=== PATIENT | female | born 1950 | race Caucasian/White ===

== ENCOUNTER → 2024-10-24 | Outpatient (CLI) | payer MEDICARE, MEDICAID, SELFPAY ==
--- NOTE | 2024-10-24 08:30 | XR_ITS ---
Examination: Breast ultrasound, unilateral, left complete Date and time of exam: October 24, 2024 0934 hours Breast itchiness, probably benign retroareolar glandular tissue on mammography July 24, 2024 Technique: Real-time zacarias scale ultrasonographic imaging performed left breast including all 4 quadrants as well as nipple retroareolar and axillary region. Findings: No cystic or solid mass IMPRESSION: BI-RADS Category 1: Negative study
--- NOTE | 2024-10-24 09:00 | XR_ITS ---
Examination: Diagnostic digital mammography, unilateral, left Computer aided detection 3-D breast Tomosynthesis, unilateral Date and time of exam: October 24, 2024 0926 hours INDICATIONS: Retroareolar left breast focal asymmetry on mammogram June 03, 2024 Technique: Nonmagnified MLO, CC views of the left breast have been obtained, reconstructed from 3-D Tomosynthesis images. R2 computer aided detection program utilized for evaluation of suspicious masses and/or abnormal calcifications. 3-D Tomosynthesis images obtained. Findings: Scattered areas of fibroglandular density Again noted retroareolar focal asymmetry No definite suspicious masses Impression: BI-RADS category 2: Benign findings Recommend bilateral six-month mammography follow-up
== END | disposition home or self-care (01) ==
LOC: CDIM 09:14
PROVIDERS: Referring Provider Physician Assistant; Visit Provider Physician Assistant
DX: R92.322 Mammographic fibroglandular density, left breast (principal)
CPT/HCPCS: 76641; 77061; 77065; G0279

== ENCOUNTER 2024-12-17 14:16 | Emergency (ER) | payer MEDICARE, SELFPAY ==
[2024-12-17 14:17] VITALS: PULSE 89; RESP 18; O2SAT 93
[2024-12-17 14:28] VITALS: BP 143/66; PULSE 89; RESP 18; TEMP 36.9; O2SAT 95; BMI 26.3
--- NOTE | 2024-12-17 14:37 | EKG_ITS ---
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
--- NOTE | 2024-12-17 14:37 | XR_ITS ---
Examination: CT brain head without contrast. 2-D sagittal coronal reconstructions Date and time of exam:December 17, 2024 1635 hours INDICATIONS: Headaches high blood pressure beginning 3 days ago COMPARISON: November 16, 2019 CTDI: vol (mGy):46.9 DLP: (mGycm):903 Technique: Multiple CT axial sections of the brain have been obtained, 5 mm slice thickness. Contrast has not been administered. 2-D sagittal, coronal reconstructions have been obtained Low dose protocols were performed. One or more of the following dose reduction techniques were used; automated exposure control, adjustment of the mA and/or KV according to patient size, use of iterative reconstruction technique. Findings: No significant ventricular enlargement. Intra-axial or extra-axial hemorrhage density is not seen. No mass effect or midline shift Basal cisterns are not remarkable. Fourth ventricle is midline. Cranial vault intact. Impression: No interval acute hemorrhage, mass effect or midline shift
--- NOTE | 2024-12-17 14:38 | PD.EDADULT ---
ED General RME/HPI General Chief complaint: General Adult/Misc Complain Stated complaint: BP ELEVATED EVEN AFTER TAKING MEDS Time Seen by Provider: 12/17/24 14:33 Arrival date/time: 12/17/24 14:16 RME / HPI RME / HPI narrative: 74-year-old female presents to the emergency department with complaint of my blood pressure is going up and down . Patient also voices concern that she is having mini strokes. Patient reports compliance with her BP medications. Patient also reports pain on the left side of her neck. She denies any slurred speech. Denies any headache. Denies chest pain or palpitations. Related Data Home Medications ?Medication ?Instructions ?Recorded ?Confirmed famotidine 20 mg tablet (Pepcid) 20 mg PO QDAY 06/06/19 11/04/21 sertraline 50 mg tablet 50 mg PO QDAY 06/06/19 11/04/21 atorvastatin 20 mg tablet 20 mg PO QDAY 06/25/19 11/04/21 dulaglutide 0.75 mg/0.5 mL 0.75 mg subcut QWEEK 06/25/19 11/04/21 subcutaneous pen injector (Trulicity) aspirin 81 mg tablet,delayed 81 mg PO QDAY 11/04/21 11/04/21 release estradiol 10 mcg vaginal tablet 10 mcg vaginal DIRECTED 11/04/21 11/04/21 (Vagifem) furosemide 20 mg tablet 20 mg PO QDAY 11/04/21 11/04/21 lisinopril 10 mg tablet 10 mg PO QDAY 11/04/21 11/04/21 potassium chloride 10 mEq 10 meq PO QDAY 11/04/21 11/04/21 capsule,extended release sitagliptin phosphate 50 mg tablet 50 mg PO QDAY 11/04/21 11/04/21 (Januvia) solifenacin 5 mg tablet (Vesicare) 5 mg PO QDAY 11/04/21 11/04/21 Previous Rx's ?Medication ?Instructions ?Recorded clotrimazole 1 % topical solution 1 applicatio topical BID #30 mL 12/07/19 nitrofurantoin 100 mg PO BID #14 caps 10/18/21 monohydrate/macrocrystals 100 mg capsule (Macrobid) Allergies Allergy/AdvReac Type Severity Reaction Status Date / Time albuterol Allergy Severe DIZZY Verified 12/17/24 14:21 fluticasone (From Flonase) Allergy Severe Dizziness Verified 12/17/24 14:21 salmeterol (From Serevent) Allergy Severe Dizziness Verified 12/17/24 14:21 tiotropium (From Spiriva Allergy Severe Dizziness Verified 12/17/24 14:21 with HandiHaler) lansoprazole (From Prevacid) Allergy Intermediate Rash Verified 12/17/24 14:21 Sulfa (Sulfonamide AdvReac Severe WEAKNESS Verified 12/17/24 14:21 Antibiotics) Review of Systems Review of Systems Narrative Review of Systems: Review of systems negative except as outlined in the HPI. ED Exam Narrative Physical exam: Constitutional: no acute distress, age appropriate, non-toxic Eyes: PERRL, conjunctivae w/o pallor, EOMI HENT: normocephalic, atraumatic. Oral mucosa moist Respiratory Effort: no stridor, effort normal, no retractions Breath sounds: Clear bilaterally; No rales, No rhonchi, No wheezing Cardiovascular: regular rhythm, S1 and S2 normal, no murmur Abdominal: soft; non-distended, non-tender Musculoskeletal: no deformities, no swelling, no LE edema Skin: warm, dry; No rash Neurology: alert, oriented X 4. Normal gait. Moves all extremities spontaneously. Cranial nerves II through XII intact. 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 No facial droop. Normal [id number]. No pronator drift. Psychology: cooperative, normal mood Course Quality Measures none Orders Category Date Time Status EKG (ED ONLY) *Do not use* NOW Care 12/17/24 14:[address] head/brain wo con Stat Exams 12/17/24 14:37 Completed EKG (ED Only) Stat Exams 12/17/24 14:37 Draft CBC Stat Lab 12/17/24 14:50 Completed CMP [Comprehensive Metabolic Panel] Stat Lab 12/17/24 14:50 Completed Troponin I Stat Lab 12/17/24 14:50 Completed HYDROcodone*/APAP 5/325 [[place] 5/325] Med 12/17/24 14:37 Discontinued 1 tab PO X1 ONE Vital Signs Vital signs: Vital Signs Temperature 98.5 F 12/17/24 14:28 Pulse Rate 89 12/17/24 14:28 Respiratory Rate 18 12/17/24 14:28 Blood Pressure 143/66 H 12/17/24 14:28 Pulse Oximetry (%) 95 12/17/24 14:28 Oxygen Delivery Method Room Air 12/17/24 14:28 [facility] Patient data External records reviewed:: [facility] previous records Clinical information provided by:: patient Social determinants that could affect healthcare access:: none Patient has the following chronic illnesses:: Hypertension, COPD How is presenting disease/condition affected by chronic disease/condition?: exacerbated by Evaluation data The following diagnostics were reviewed and interpreted by me:: lab results, radiology exam(s) and EKG tracing(s) Lab and/or radiology exams considered but not ordered:: None Interpretation Summary: CBC shows no leukocytosis or anemia CMP shows no significant electrolyte abnormalities, no ASHLEY creatinine at baseline. LFTs less than 3x upper limit of normal UA unremarkable EKG medically necessary in the evaluation of hypertension and interpreted by me and ED physician at the time of patient evaluation. Normal sinus rhythm with a rate of 78. [place] and QT intervals within normal limits. No ST/T changes. No STEMI. Interpretation: Normal EKG Examination: CT brain head without contrast. 2-D sagittal coronal reconstructions Date and time of exam:December 17, 2024 1635 hours INDICATIONS: Headaches high blood pressure beginning 3 days ago COMPARISON: November 16, 2019 Findings: No significant ventricular enlargement. Intra-axial or extra-axial hemorrhage density is not seen. No mass effect or midline shift Basal cisterns are not remarkable. Fourth ventricle is midline. Cranial vault intact. Impression: No interval acute hemorrhage, mass effect or midline shift Medications Medications considered but not ordered:: None Medication administrations:: Medication Administration History Discontinued Medications Hydrocodone Bitart/Acetaminophen (Hydrocodone/Apap 5/325 Tablet) 1 tab PO X1 ONE Stop: 12/17/24 14:38 Last Admin: 12/17/24 14:46 Dose: 1 tab Documented By: KF See above Consultations Consultation(s) initiated? (list below): No Diagnosis Differential Diagnosis ED Complaint MDM: See MDM Most likely diagnosis given after review of the tests above:: Hypertension Admission Indicated Admission indicated?: not indicated Explain why admission is indicated or not indicated:: Stable for outpatient management Admission Request Was there a request for admission?: No Disposition Plan Disposition Plan: Discharge Discharge Attestation Discharge Attestation: The patient and all family members were given an opportunity to ask questions and understood the discharge instructions. Discharge instructions specifically effects, indications for sooner follow up or return to the emergency department, and the expected course of current diagnosis. Patient condition: Stable Medical Decision Making MDM Narrative MDM Narrative: Patient is a 74-year-old female who presents with complaint of elevated blood pressure and concerned that she has having mini strokes. Her BP here is not significantly elevated. Nevertheless, I am considering hypertensive urgency, hypertensive emergency, ICH, and ACS. Will check labs, EKG, troponin, head CT. Patient does have a normal neurologic exam. EKG and troponin normal, do not suspect ACS. No evidence of endorgan damage on laboratory studies. Head CT normal. Patient to follow-up with primary care for adjustment of antihypertensive as needed. Return to ED precautions given. Differential Diagnosis Differential Diagnosis: See MDM Lab Data 12/17/24 14:50 12/17/24 14:50 Labs: Lab Results 12/17/24 Range/Units 14:50 WBC 10.2 (3.6-11.0) Thou/mm3 RBC 3.95 L (4.00-5.20) Miln/mm3 Hgb 13.3 (12.0-16.0) g/dL Hct 37.9 (36.0-46.0) % MCV 96 (80-100) fL MCH 33.7 (25.0-35.0) pg MCHC 35.1 (31.0-37.0) g/dl RDW Std Deviation 47.4 H (36.4-46.3) fL Plt Count 201 (140-440) Thou/mm3 Neut % (Auto) 54 (37-80) % Lymph % (Auto) 37 (10-50) % Winston % (Auto) 7 (0-12) % Eos % (Auto) 0 (0-10) % Baso % (Auto) 1 (0-2.5) % Neut # (Auto) 5.5 (1.8-7.7) Thou/mm3 Lymph # (Auto) 3.8 (1.0-4.8) Thou/mm3 Winston # (Auto) 0.8 (0.0-0.8) Thou/mm3 Eos # (Auto) 0.0 (0.0-0.5) Thou/mm3 Baso # (Auto) 0.1 (0.0-0.2) Thou/mm3 Immature Gran # (Auto) 0.04 H (0.00-0.00) Thou/mm3 Absolute Nucleated RBC 0.00 (0.00-0.00) Thou/mm3 Immature Gran % 0 (0-0) % Nucleated RBC % 0 (0) /100 WBC Sodium 132 L (136-145) mMol/L Potassium 5.2 H (3.4-5.1) mMol/L Chloride 101 (98-107) mMol/L Carbon Dioxide 26.3 (20.0-31.0) mMol/L Anion Gap 5 L (7-16) BUN 18 (9-23) mg/dL Creatinine 1.4 H (0.6-1.3) mg/dL Estim Creat Clear Calc 31.7 L (>60) mL/min eGFR 40 L (60 - ) See Note BUN/Creatinine Ratio 13 (12-20) Ratio Glucose 126 H (74-106) mg/dL Calculated Osmolality 268 L (275-295) Calcium 9.7 (8.3-10.6) mg/dL Corrected Calcium 9.7 (8.5-10.1) mg/dL Total Bilirubin 0.4 (0.3-1.2) mg/dL AST 20 (0-34) U/L ALT 11 (10-49) U/L Alkaline Phosphatase 80 (46-116) U/L Troponin I < 0.020 (0.0-0.045) ng/mL Total Protein 7.4 (5.7-8.2) gm/dL Albumin 4.5 (3.4-4.8) gm/dL Globulin 2.9 (2.3-3.5) gm/dL Albumin/Globulin Ratio 1.6 (1.2-2.2) Discharge Plan Plan Patient Disposition: HOME (Self Care) Prescriptions/Referrals Prescriptions/Med Rec: No Action famotidine [Pepcid] 20 mg tablet 20 mg PO QDAY sertraline 50 mg tablet 50 mg PO QDAY Trulicity 0.75 mg/0.5 mL pen injector 0.75 mg SC QWEEK atorvastatin 20 mg tablet 20 mg PO QDAY clotrimazole 1 % solution 1 applicatio TOPICAL BID Qty: 30 0RF potassium chloride 10 mEq capsule, extended release 10 meq PO QDAY lisinopril 10 mg tablet 10 mg PO QDAY Januvia 50 mg tablet 50 mg PO QDAY aspirin 81 mg tablet,delayed release (DR/EC) 81 mg PO QDAY furosemide 20 mg tablet 20 mg PO QDAY solifenacin [Vesicare] 5 mg tablet 5 mg PO QDAY estradiol [Vagifem] 10 mcg tablet 10 mcg vaginal DIRECTED Patient Comments: Twice a week nitrofurantoin monohyd/m-cryst [Macrobid] 100 mg capsule 100 mg PO BID Qty: 14 0RF Rx Instructions: must administer with a meal/food Referrals: Miroslava Nina PA-C [Primary Care Provider] - In 1 week Problem List Clinical Impression: Hypertension Patient/Caregiver Discharge Instructions Education Materials: ED Hypertension, Established Additional Instructions: Follow-up with your primary care doctor for adjustment of blood pressure medications. Return to the ED for any new or worsening symptoms. Print Language: Indonesian Stand Alone Forms: Karen Award Info., Patient Portal Info Letter
[2024-12-17] MEDS: HYDROcodone/APAP 5/325 TABLET 1 TAB PO (14:46)
[2024-12-17 15:17] LABS: Basophils # (Auto) 0.1 Thou/mm3 (0.0-0.2); Basophils % (Auto) 1 % (0-2.5); Eosinophils % (Auto) 0 % (0-10); Hematocrit 37.9 % (36.0-46.0); Hemoglobin 13.3 g/dL (12.0-16.0); Immature Granulocytes % (Auto) 0 % (0-0); Immature Granulocytes Auto 0.04 Thou/mm3 (0.00-0.00); Lymphocytes # (Auto) 3.8 Thou/mm3 (1.0-4.8); Lymphocytes % (Auto) 37 % (10-50); Mean Corpuscular HGB Conc 35.1 g/dl (31.0-37.0); Mean Corpuscular Hemoglobin 33.7 pg (25.0-35.0); Mean Corpuscular Volume 96 fL (80-100); Monocytes # (Auto) 0.8 Thou/mm3 (0.0-0.8); Monocytes % (Auto) 7 % (0-12); Neutrophils # (Auto) 5.5 Thou/mm3 (1.8-7.7); Neutrophils % (Auto) 54 % (37-80); Nucleated Red Blood Cell % 0 /100 WBC (0); Platelet Count 201 Thou/mm3 (140-440); RDW Standard Deviation 47.4 fL (36.4-46.3); Red Blood Count 3.95 Miln/mm3 (4.00-5.20); White Blood Count 10.2 Thou/mm3 (3.6-11.0)
[2024-12-17 16:21] LABS: Albumin, Serum 4.5 gm/dL (3.4-4.8); Albumin/Globulin Ratio 1.6 (1.2-2.2); Alkaline Phosphatase 80 U/L (46-116); Anion Gap 5 (7-16); Aspartate Amino Transferase 20 U/L (0-34); BUN/Creatinine Ratio 13 Ratio (12-20); Bilirubin,Total 0.4 mg/dL (0.3-1.2); Blood Urea Nitrogen 18 mg/dL (9-23); Calcium 9.7 mg/dL (8.3-10.6); Calcium (Corrected) 9.7 mg/dL (8.5-10.1); Carbon Dioxide 26.3 mMol/L (20.0-31.0); Chloride 101 mMol/L (98-107); Creatinine (Component) 1.4 mg/dL (0.6-1.3); Estimated Creatinine Clearance 31.7 mL/min (>60); Globulin 2.9 gm/dL (2.3-3.5); Glucose 126 mg/dL (74-106); Osmolality,Calculated 268 (275-295); Potassium 5.2 mMol/L (3.4-5.1); Sodium 132 mMol/L (136-145); Total Protein 7.4 gm/dL (5.7-8.2); Troponin I < 0.020 ng/mL (0.0-0.045); eGFR 40 See Note
[2024-12-17 16:50] LABS: Alanine Aminotransferase 11 U/L (10-49)
[2024-12-17 18:07] VITALS: BP 183/78; PULSE 71; RESP 18; O2SAT 95
== END 2024-12-17 18:09 | disposition home or self-care (01) ==
PROVIDERS: Physician Assistant; Emergency Provider Emergency Medicine; PCP Physician Assistant
DX: I10 Essential (primary) hypertension (principal); R51.9 Headache, unspecified
CPT/HCPCS: 36415; 70450; 80053; 84484; 85025; 93005; 99284; A9270

== ENCOUNTER → 2025-01-13 | Outpatient (CLI) | payer MEDICARE, SELFPAY ==
[2025-01-13 09:35] LABS: Basophils # (Auto) 0.1 Thou/mm3 (0.0-0.2); Basophils % (Auto) 1 % (0-2.5); Eosinophils % (Auto) 0 % (0-10); Hematocrit 41.1 % (36.0-46.0); Hemoglobin 13.9 g/dL (12.0-16.0); Immature Granulocytes % (Auto) 0 % (0-0); Immature Granulocytes Auto 0.03 Thou/mm3 (0.00-0.00); Lymphocytes # (Auto) 2.5 Thou/mm3 (1.0-4.8); Lymphocytes % (Auto) 30 % (10-50); Mean Corpuscular HGB Conc 33.8 g/dl (31.0-37.0); Mean Corpuscular Hemoglobin 33.4 pg (25.0-35.0); Mean Corpuscular Volume 99 fL (80-100); Monocytes # (Auto) 0.6 Thou/mm3 (0.0-0.8); Monocytes % (Auto) 8 % (0-12); Neutrophils # (Auto) 5.1 Thou/mm3 (1.8-7.7); Neutrophils % (Auto) 61 % (37-80); Nucleated Red Blood Cell % 0 /100 WBC (0); Platelet Count 207 Thou/mm3 (140-440); RDW Standard Deviation 48.5 fL (36.4-46.3); Red Blood Count 4.16 Miln/mm3 (4.00-5.20); White Blood Count 8.3 Thou/mm3 (3.6-11.0)
[2025-01-13 10:09] LABS: Alanine Aminotransferase 11 U/L (10-49); Albumin, Serum 4.2 gm/dL (3.4-4.8); Albumin/Globulin Ratio 1.6 (1.2-2.2); Alkaline Phosphatase 74 U/L (46-116); Anion Gap 2 (7-16); Aspartate Amino Transferase 20 U/L (0-34); BUN/Creatinine Ratio 19 Ratio (12-20); Bilirubin,Total 0.6 mg/dL (0.3-1.2); Blood Urea Nitrogen 31 mg/dL (9-23); Calcium 9.4 mg/dL (8.3-10.6); Calcium (Corrected) 9.4 mg/dL (8.5-10.1); Carbon Dioxide 28.8 mMol/L (20.0-31.0); Cardiac Risk Estimate 8.7 RATIO (3.7-5.6); Chloride 105 mMol/L (98-107); Cholesterol 287 mg/dL (132-200); Creatinine (Component) 1.6 mg/dL (0.6-1.3); Globulin 2.6 gm/dL (2.3-3.5); Glucose 137 mg/dL (74-106); HDL Cholesterol 33 mg/dL (40-60); LDL Cholesterol,Calculated 195 mg/dL (0-130); Osmolality,Calculated 280 (275-295); Sodium 136 mMol/L (136-145); Thyroid Stimulating Hormone 2.68 uIU/mL (0.55-4.78); Total Protein 6.8 gm/dL (5.7-8.2); Triglycerides 293 mg/dL (30-150); eGFR 34 See Note
[2025-01-13 10:27] LABS: Syphilis Nonreactive (Nonreactive)
[2025-01-13 10:36] LABS: Hepatitis A Antibody IgM Non Reactive (Non React); Hepatitis B Core Antibody IgM Non Reactive (Non React); Hepatitis B Surface Antigen Non Reactive (Non React); Hepatitis C Antibody Non Reactive (Non React)
[2025-01-13 11:17] LABS: Glucose Estimated Average 140 mg/dL (80-131); Hemoglobin A1C 6.5 % Hgb (4.8-6.0)
[2025-01-16 07:19] LABS: HIV Ag/Ab, 4th Gen NON-REACTIVE; HSV2 IgG Type Specific Ab 3.68 INDEX
== END | disposition home or self-care (01) ==
PROVIDERS: PCP Internal Medicine; Referring Provider Internal Medicine; Visit Provider Internal Medicine
DX: F17.200 Nicotine dependence, unspecified, uncomplicated (principal); Z11.3 Encounter for screening for infections with a predominantly sexual mode of transmission; Z11.59 Encounter for screening for other viral diseases; Z13.6 Encounter for screening for cardiovascular disorders; Z76.89 Persons encountering health services in other specified circumstances; Z79.899 Other long term (current) drug therapy
CPT/HCPCS: 36415; 80053; 80061; 80074; 83036; 84443; 85025; 86695; 86696; 86780; 87389

== ENCOUNTER 2025-02-06 13:53 | Emergency (ER) | payer MEDICARE, SELFPAY ==
[2025-02-06 13:58] VITALS: BP 139/75; PULSE 78; RESP 20; TEMP 36.1; O2SAT 100
[2025-02-06 14:24] VITALS: PULSE 80; RESP 24; O2SAT 90; BMI 23.8
--- NOTE | 2025-02-06 15:10 | XR_ITS ---
Examination: AP chest single view Technique one AP portable upright chest single view Exam date and time: February 06, 2025 1517 hours INDICATIONS: Shortness of breath chest pain today FINDINGS: Normal heart size Subsegmental atelectasis at the lung bases No lobar pneumonia or pulmonary edema Prominent osteopenia IMPRESSION: No lobar pneumonia or pulmonary edema
--- NOTE | 2025-02-06 15:10 | EKG_ITS ---
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
--- NOTE | 2025-02-06 15:11 | PD.EDSOB ---
ED SOB =RME/HPI General Chief Complaint: Shortness of Breath/Dyspnea Stated Complaint: SOB Time Seen by Provider: 02/06/25 15:14 Arrival date/time: 02/06/25 13:53 RME / HPI RME / HPI Narrative: 74-year-old female patient with significant history of COPD however hypertension diabetes mellitus, was brought in by EMS for evaluation regarding shortness of breath. According to the patient incident happened few minutes prior to ER visit, patient was choking on her phlegm. She was just recently discharged from different hospital for COPD and pneumonia. Last dose of antibiotic was 2-3 days ago. Patient is using oxygen at home 08/05 at 2 L nasal cannula. Denies any chest pain denies any fever denies any other complaints. Related Data Home Medications ?Medication ?Instructions ?Recorded ?Confirmed famotidine 20 mg tablet (Pepcid) 20 mg PO QDAY 06/06/19 11/04/21 sertraline 50 mg tablet 50 mg PO QDAY 06/06/19 11/04/21 atorvastatin 20 mg tablet 20 mg PO QDAY 06/25/19 11/04/21 dulaglutide 0.75 mg/0.5 mL 0.75 mg subcut QWEEK 06/25/19 11/04/21 subcutaneous pen injector (Trulicity) aspirin 81 mg tablet,delayed 81 mg PO QDAY 11/04/21 11/04/21 release estradiol 10 mcg vaginal tablet 10 mcg vaginal DIRECTED 11/04/21 11/04/21 (Vagifem) furosemide 20 mg tablet 20 mg PO QDAY 11/04/21 11/04/21 lisinopril 10 mg tablet 10 mg PO QDAY 11/04/21 11/04/21 potassium chloride 10 mEq 10 meq PO QDAY 11/04/21 11/04/21 capsule,extended release sitagliptin phosphate 50 mg tablet 50 mg PO QDAY 11/04/21 11/04/21 (Januvia) solifenacin 5 mg tablet (Vesicare) 5 mg PO QDAY 11/04/21 11/04/21 Previous Rx's ?Medication ?Instructions ?Recorded clotrimazole 1 % topical solution 1 applicatio topical BID #30 mL 12/07/19 nitrofurantoin 100 mg PO BID #14 caps 10/18/21 monohydrate/macrocrystals 100 mg capsule (Macrobid) Allergies Allergy/AdvReac Type Severity Reaction Status Date / Time albuterol Allergy Severe DIZZY Verified 12/17/24 14:21 fluticasone (From Flonase) Allergy Severe Dizziness Verified 12/17/24 14:21 salmeterol (From Serevent) Allergy Severe Dizziness Verified 12/17/24 14:21 tiotropium (From Spiriva Allergy Severe Dizziness Verified 12/17/24 14:21 with HandiHaler) lansoprazole (From Prevacid) Allergy Intermediate Rash Verified 12/17/24 14:21 Sulfa (Sulfonamide AdvReac Severe WEAKNESS Verified 12/17/24 14:21 Antibiotics) Review of Systems Review of Systems Narrative Review of Systems: Review of system reviewed and within normal limits except mentioned in HPI ED Exam Narrative Physical exam: VITAL SIGNS: Reviewed. GENERAL APPEARANCE: Alert and interactive, follows commands, no acute distress, HEAD AND FACE: Non-traumatic. ENT: PERRL, pink conjunctivitis, eyelid no trauma, Mucous membrane moist. NECK: Supple, nontender, no nuchal rigidity. CHEST: No tenderness, no crepitus, no paradoxical movement, no retractions. LUNGS: Clear, well ventilated, symmetric, no rales, no wheezing, no ronchi, no stridor, good breath sounds bilaterally. HEART: Regular rate, regular rhythm, no murmur, no gallops. ABDOMEN: Soft, positive bowel sounds, nondistended, no guarding, nontender, no rebound, no masses, RECTAL: Deferred. GENITAL: Deferred. NEUROLOGICAL: Gross motor function intact sensory function intact, Appropriate for age. MUSCULOSKELETAL: low back nontender, full range of motion. EXTREMITIES: Nontender, full range of motion. SKIN: Color pink, dry, no rash, no lacerations, no abrasions, no contusions. LYMPHATICS: Deferred. Course Quality Measures none Orders Category Date Time Status EKG (ED ONLY) *Do not use* NOW Care 02/06/25 15:10 Completed EKG (ED Only) Stat Exams 02/06/25 15:10 Draft XR chest 1V Stat Exams 02/06/25 15:10 Completed CBC [CBC] Stat Lab 02/06/25 15:24 Completed CMP [Comprehensive Metabolic Panel] Stat Lab 02/06/25 15:24 Completed Sodium Chloride 0.9% 1000 ml [Ns] 1,000 ml Med 02/06/25 16:23 Discontinued IV 999 mls/hr predniSONE Med 02/06/25 15:11 Discontinued 60 mg PO X1 ONE Vital Signs Vital signs: Vital Signs Temperature 97.0 F 02/06/25 13:58 Pulse Rate 78 02/06/25 13:58 Respiratory Rate 20 02/06/25 13:58 Blood Pressure 139/75 H 02/06/25 13:58 Pulse Oximetry (%) 100 02/06/25 13:58 Oxygen Delivery Method Oxy Mask 02/06/25 13:58 Oxygen Flow Rate 6 02/06/25 13:58 Shortness of Breath / Dyspnea MDM Narrative MDM Narrative:: 74-year-old female patient with significant history of COPD however hypertension diabetes mellitus, was brought in by EMS for evaluation regarding shortness of breath. According to the patient incident happened few minutes prior to ER visit, patient was choking on her phlegm. She was just recently discharged from different hospital for COPD and pneumonia. Last dose of antibiotic was 2-3 days ago. Patient is using oxygen at home 08/05 at 2 L nasal cannula. Denies any chest pain denies any fever denies any other complaints. EKG as interpreted by me showed sinus rhythm, ventricular rate of 76 bpm, no ST segment elevation depression noted. Patient sodium today was noted to be 128. Chloride of 97 creatinine 1.6 BUN of 44. Patient was given 1 L of IV NS to help with hyponatremia. I personally reviewed and interpreted the chest x-ray of this patient. There is no acute abnormalities found, no infiltrates no pneumothorax no hemothorax normal chest x-ray. Review of other structures was without significant abnormal findings also. I additionally reviewed the radiologist report and agree with the interpretation. Patient was advised to closely follow-up with PCP for repeat CMP. Was noted to be satting 95% on 2 L. Patient is using oxygen at home. No choking episode noted in the emergency room. Patient data External records reviewed:: None Clinical information provided by:: patient Social determinants that could affect healthcare access:: none Patient has the following chronic illnesses:: COPD How is presenting disease/condition affected by chronic disease/condition?: exacerbated by Evaluation data The following diagnostics were reviewed and interpreted by me:: lab results, radiology exam(s) and EKG tracing(s) Lab and/or radiology exams considered but not ordered:: None Interpretation Summary: See results MDM Medications / Prescriptions Medications or Prescriptions considered but not ordered:: None Medication administrations:: Medication Administration History Discontinued Medications Sodium Chloride (Ns) 1,000 mls @ 999 mls/hr IV .Q1H1M ONE Stop: 02/06/25 17:23 Last Infusion: 02/06/25 17:19 Dose: Infused Documented By: Admin: 02/06/25 16:36 Dose: 999 mls/hr Documented By: CORINE Prednisone (Prednisone 20 Mg Tablet) 60 mg PO X1 ONE Stop: 02/06/25 15:12 Last Admin: 02/06/25 15:29 Dose: 60 mg Documented By: CORINE Prednisone and IV fluids for hydration Consultations Consultation(s) initiated? (list below): No Diagnosis Shortness of Breath Differential Diagnosis: acute exacerbation of chronic obstructive airways disease, community acquired pneumonia and other (Hyponatremia) Most likely diagnosis given after review of the tests above:: COPD exacerbation Admission Indicated Admission indicated?: not indicated Admission Request Was there a request for admission?: No Disposition Plan Disposition Plan: Discharge Discharge Attestation Discharge Attestation: The patient was given an opportunity to ask questions and understood the discharge instructions. Discharge instructions specifically effects, indications for sooner follow up or return to the emergency department, and the expected course of current diagnosis. Patient condition: Stable Discharge Plan Plan Patient Disposition: HOME (Self Care) Disposition Comment: Stable Prescriptions/Referrals Prescriptions/Med Rec: No Action famotidine [Pepcid] 20 mg tablet 20 mg PO QDAY sertraline 50 mg tablet 50 mg PO QDAY Trulicity 0.75 mg/0.5 mL pen injector 0.75 mg SC QWEEK atorvastatin 20 mg tablet 20 mg PO QDAY clotrimazole 1 % solution 1 applicatio TOPICAL BID Qty: 30 0RF potassium chloride 10 mEq capsule, extended release 10 meq PO QDAY lisinopril 10 mg tablet 10 mg PO QDAY Januvia 50 mg tablet 50 mg PO QDAY aspirin 81 mg tablet,delayed release (DR/EC) 81 mg PO QDAY furosemide 20 mg tablet 20 mg PO QDAY solifenacin [Vesicare] 5 mg tablet 5 mg PO QDAY estradiol [Vagifem] 10 mcg tablet 10 mcg vaginal DIRECTED Patient Comments: Twice a week nitrofurantoin monohyd/m-cryst [Macrobid] 100 mg capsule 100 mg PO BID Qty: 14 0RF Rx Instructions: must administer with a meal/food Referrals: Juanita Jung MD [Primary Care Provider] - In 1 week Problem List Clinical Impression: COPD (chronic obstructive pulmonary disease) Patient/Caregiver Discharge Instructions Discharge Activity: activity as tolerated Education Materials: COPD: Chronic Coughing Additional Instructions: Thank you for the opportunity for serving you today. You are stable for discharged . You are advised to: Follow-up with your PCP in 1 to 2 days Return to ED for worsening of symptoms Increase oral fluids Take medication as prescribed prescribed by your PCP Print Language: Icelandic Stand Alone Forms: Karen Award Info., Patient Portal Info Letter PA/NUT FORMER Supervising Physician PA/NUT FORMER Supervising Physician: MD Venkata
[2025-02-06] MEDS: predniSONE 20 MG TABLET 60 MG PO (15:29)
[2025-02-06 15:36] LABS: Basophils # (Auto) 0.1 Thou/mm3 (0.0-0.2); Basophils % (Auto) 1 % (0-2.5); Eosinophils % (Auto) 0 % (0-10); Hematocrit 37.9 % (36.0-46.0); Hemoglobin 13.8 g/dL (12.0-16.0); Immature Granulocytes % (Auto) 1 % (0-0); Immature Granulocytes Auto 0.08 Thou/mm3 (0.00-0.00); Lymphocytes # (Auto) 4.4 Thou/mm3 (1.0-4.8); Lymphocytes % (Auto) 34 % (10-50); Mean Corpuscular HGB Conc 36.4 g/dl (31.0-37.0); Mean Corpuscular Volume 93 fL (80-100); Monocytes # (Auto) 0.8 Thou/mm3 (0.0-0.8); Monocytes % (Auto) 7 % (0-12); Neutrophils # (Auto) 7.4 Thou/mm3 (1.8-7.7); Neutrophils % (Auto) 58 % (37-80); Nucleated Red Blood Cell % 0 /100 WBC (0); Platelet Count 205 Thou/mm3 (140-440); RDW Standard Deviation 44.6 fL (36.4-46.3); Red Blood Count 4.06 Miln/mm3 (4.00-5.20); White Blood Count 12.9 Thou/mm3 (3.6-11.0)
[2025-02-06 16:00] LABS: Alanine Aminotransferase 20 U/L (10-49); Albumin, Serum 4.4 gm/dL (3.4-4.8); Albumin/Globulin Ratio 1.8 (1.2-2.2); Alkaline Phosphatase 70 U/L (46-116); Anion Gap 6 (7-16); Aspartate Amino Transferase 22 U/L (0-34); BUN/Creatinine Ratio 28 Ratio (12-20); Bilirubin,Total 0.6 mg/dL (0.3-1.2); Blood Urea Nitrogen 44 mg/dL (9-23); Calcium 9.1 mg/dL (8.3-10.6); Calcium (Corrected) 9.1 mg/dL (8.5-10.1); Carbon Dioxide 25.2 mMol/L (20.0-31.0); Chloride 97 mMol/L (98-107); Creatinine (Component) 1.6 mg/dL (0.6-1.3); Estimated Creatinine Clearance 24.8 mL/min (>60); Globulin 2.5 gm/dL (2.3-3.5); Glucose 145 mg/dL (74-106); Osmolality,Calculated 271 (275-295); Potassium 4.2 mMol/L (3.4-5.1); Sodium 128 mMol/L (136-145); Total Protein 6.9 gm/dL (5.7-8.2); eGFR 34 See Note
[2025-02-06 16:07] VITALS: BP 104/62; PULSE 88; RESP 20; TEMP 36.8; O2SAT 94
[2025-02-06] MEDS: SODIUM CHLORIDE 0.9% 1000 ML 1,000 ML 999 ML IV (16:36)
[2025-02-06 18:34] VITALS: BP 118/47; PULSE 71; RESP 18; TEMP 36.9; O2SAT 92
== END 2025-02-06 18:58 | disposition home or self-care (01) ==
PROVIDERS: Nurse Practitioner Family; Emergency Provider Emergency Medicine; PCP Internal Medicine
DX: J44.9 Chronic obstructive pulmonary disease, unspecified (principal); I10 Essential (primary) hypertension; E11.9 Type 2 diabetes mellitus without complications
CPT/HCPCS: 36415; 71045; 80053; 85025; 93005; 96360; 99284; J7030; J7512

== ENCOUNTER → 2025-02-20 | Outpatient (CLI) | payer MEDICARE, MEDICAID, SELFPAY ==
--- NOTE | 2025-02-20 16:02 | XR_ITS ---
Examination: Toes, right foot 3 views first digit Technique: Toes AP oblique lateral 3 views first digit right foot 3 views Date and time of exam: February 20, 2025 1610 hours INDICATIONS: Redness swelling and pain involving the first digit beginning 2 days ago FINDINGS: Soft tissue swelling about the first digit No fracture or No opaque foreign body No dianna cortical bone destruction IMPRESSION: No dianna cortical bone destruction
== END | disposition home or self-care (01) ==
DX: L08.9 Local infection of the skin and subcutaneous tissue, unspecified (principal)
CPT/HCPCS: 73660